=== PATIENT | female | born 1990 | race Caucasian/White ===

== ENCOUNTER 2016-11-17 10:16 | Inpatient (IN) | payer BC ==
[2016-11-17] MEDS ORDERED: fentaNYL 100 MCG/2 ML SDV ITHECAL ONE (10:34)
[2016-11-17] MEDS ORDERED: Ondansetron 4 MG/2 ML SDV IV PRN (12:09)
[2016-11-17] MEDS ORDERED: Lactated Ringers 500 ML IV ONE (12:09)
[2016-11-17] MEDS ORDERED: Sodium Chloride 0.9% 10 ML Syringe FLUSH PRN ×2 (12:09→22:59)
[2016-11-17] MEDS ORDERED: Misoprostol 400 MCG (4 X 100 MCG TAB) RECTAL PRN (12:09)
[2016-11-17] MEDS ORDERED: Carboprost Tromethamine 250 MCG/1 ML Amp IM PRN (12:09)
[2016-11-17] MEDS ORDERED: Acetaminophen 325 MG Tab PO PRN (12:09)
[2016-11-17] MEDS ORDERED: Lidocaine 1% 30 ML SDV INJECT PRN (12:09)
[2016-11-17] MEDS ORDERED: Methylergonovine 0.2 MG/1 ML Amp IM PRN (12:09)
[2016-11-17] MEDS ORDERED: Penicillin G Potassium 5 MILLUNITS in Sodium Chloride 0.9% 100 ML IV ONE (12:45)
[2016-11-17] MEDS: Lactated Ringers 1,000 ML IV SCH ×3 (13:16→21:13)
[2016-11-17] MEDS: Penicillin G Potassium 3 MILLUNITS in Sodium Chloride 0.9% 100 ML IV SCH ×2 (17:11→21:35)
[2016-11-17] MEDS ORDERED: Oxytocin/Normal Saline 30 UNIT/500 ML BAG IV SCH (19:00)
[2016-11-17] MEDS ORDERED: fentaNYL 100 MCG/2 ML SDV ONE (20:42)
--- NOTE | 2016-11-17 21:20 | PCM.PRNOTE ---
- Free Text/Narrative Note: Called to place intrathecal for pain management on this patient. After consent signed, and monitors on, proceeded. With patient in sitting position, sterile prep/drape. Skin wheal at L3-4 with 1% lidocaine. LP X 1 at L3-4 with 25 gauge pencan spinal needle via 20g introducer. Positive clear, free flowing CSF , no heme, no paresthesia. Then 20 mcg Sufenta + 30 mcg Fentanyl + 6 mg (0.8ML ) mpf hyperbaric spinal marcaine intrathecal. Pt to supine after placement. Pt reported no discomfort with subsequent contractions.
[2016-11-17] MEDS ORDERED: Zolpidem 5 MG Tab PO PRN (22:59)
[2016-11-17] MEDS ORDERED: Oxytocin 10 Units/1 ML SDV IM PRN (22:59)
[2016-11-17] MEDS ORDERED: Simethicone 80 MG Tab.Chew PO PRN (22:59)
[2016-11-17] MEDS ORDERED: Benzocaine/Menthol 20%-0.5% Spray 56 GM Canister TOP PRN (22:59)
[2016-11-17] MEDS ORDERED: diphenhydrAMINE 25 MG Tab PO ONE (23:12)
[2016-11-18] MEDS: Docusate Sodium 100 MG Cap PO PRN ×3 (00:04→22:08)
[2016-11-18] MEDS: Ibuprofen 800 MG Tab PO PRN ×3 (00:04→22:08)
[2016-11-18] MEDS: Lactated Ringers 1,000 ML IV SCH (00:06)
[2016-11-18] MEDS: Penicillin G Potassium 3 MILLUNITS in Sodium Chloride 0.9% 100 ML IV SCH (00:20)
[2016-11-18] MEDS: Ferrous Sulfate 325 MG Tab PO SCH (08:24)
[2016-11-18] MEDS: Prenatal Multivitamin with Calcium/Folic Acid/Iron Tab PO SCH (08:25)
--- NOTE | 2016-11-18 10:24 | HP ---
PATIENT IDENTIFICATION: Barb Perez is a 26-year-old, G3, P2-0-0-2, intrauterine , 40 and 1/7th weeks, confirmed with 23 and 4/7th week ultrasound, who presents with contractions, as well as history of rapid labor and deliveries, and lives far from the hospital. HISTORY OF PRESENT ILLNESS: The patient has been followed by Dr. Raygoza and Dr. Escobar throughout the , presented to the clinic today, was noted to have an elevated blood pressure by my nurse of 140s over 80s to 90s, recheck was 138/70s. Subsequently, she was sent over to the hospital for further evaluation and management. She denied any headaches, visual changes, or upper abdominal pain during this time period. She had a nonstress test done as well as preeclampsia labs done. Started having some contractions felt in the lower abdomen, questionable Justino Molina or not, but had cervical change from 3 cm in the clinic to 3.5 to 4 cm, changed from 60% to 70% effaced, -1 station, vertex suspected. Because of her history, GBS positive status, living far from the hospital, and having history of rapid labors and deliveries, shared decision was made to proceed with admission with antibiotic prophylaxis for her GBS positive status and consider artificial rupture of membranes thereafter. Patient understood and agreed with the above treatment plan. Records were called for and reviewed as below and supplemented by patient history. OBSTETRICAL HISTORY: 1. 10/16/2014; 41 weeks, delivered a female, spontaneous vaginal delivery. 2. On 12/03/2011; 41 and 1/7th weeks, delivered a female, spontaneous vaginal delivery, weighing 3572 g. ANTEPARTUM LABORATORY DATA: ABO blood type B negative. Negative antibody. Rubella immune. RPR nonreactive. Negative hepatitis B surface antigen. Negative hep C, HIV. GC and chlamydia were deferred. One-hour GTT was 66 on 08/18/2016, with hemoglobin being 11.4 and platelets being 200. Quad screen was felt to be not concerning. GBS was positive on 10/14/2016. ALLERGIES: None. MEDICATIONS: vitamins. PAST MEDICAL/PAST SURGICAL HISTORY: Remarkable history of chickenpox as a child. Blood type B negative. Otherwise, reviewed and felt to be noncontributory. FAMILY HISTORY: Daughter does not have any diseases. No colon cancer or breast cancer in the family. Negative family history of defects or diabetes. SOCIAL HISTORY: , Tereso, is a cast, stacker operator. They live in [place], [place]. Daughter, Joy, born on 12/03/2011. Fabi born on 10/16/2014. They were in February 2010. [employer]ec[employer]alism. Good support system within the family. 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 REVIEW OF SYSTEMS: Otherwise, reviewed and felt to be noncontributory. Please see nurse's intake form as well. OBJECTIVE: Vital Signs: Blood pressure in the clinic was 138/72, recheck was the same. Here at the hospital 132/78, heart rate 75, temperature 98.9. Appearance: Female, appears her stated age, acting appropriate for age, nontoxic in appearance. HEENT: Head is atraumatic. EOMs intact. PERRLA. No scleral icterus. No obvious otorhinorrhea. Mucous membranes are moist. Wears glasses. Neck: No obvious masses or lymphadenopathy. Lungs: Clear to auscultation bilaterally. No increased work of breathing. Heart: S1 and S2. Regular rate and rhythm. No obvious extra heart sounds, murmurs, rubs, or gallops Abdomen: Soft, nontender, and nondistended. Positive bowel sounds. No organomegaly, pulsatile masses, or hernias. No rebound, rigidity, or guarding. Gravid, Ranjit's indeterminate. Extremities: Trace to 1+ pitting edema to proximal tibia. Deep tendon reflexes 2/4 bilaterally and symmetric in the lower extremities. Psych: Mood and affect are congruent. Judgment and insight are intact. Skin: No cyanosis, clubbing, or jaundice. : Normal external female genitalia. Vaginal exam over the clinic was 3 cm, 60% effaced, -1 station. Re-evaluation after NST and evaluation at the hospital revealed her to be 3.5 to 4 cm, 70% effaced, -1 station. INVESTIGATIONS: White cell count 9.4, hemoglobin 10.3, platelets 218,000. BUN, creatinine, uric acid, AST, ALT, and LDH was felt to be within normal limits. NST was found to be reactive and reassuring. Tocometer does reveal contractions every 5 to 8 minutes apart. ASSESSMENT AND PLAN: 1. Intrauterine 40 and 07/05 weeks confirmed with 23 and 4/7th week ultrasound. 2. Contractions with cervical change-suspected labor. 3. History of rapid labors and delivery. 4. Lives far from the hospital. 5. Group B Streptococcus positive status. 6. Rh negative. 7. Anemia of with hemoglobin 10.3 upon admit. 8. Gestational versus transient hypertension. We will follow blood pressures closely. Workup for preeclampsia was felt to be not concerning. 9. G3, P2-0-0-2. PLAN: As described above with her GBS positive status, we will start antibiotics immediately, consider artificial rupture of membranes afterwards, as well as following clinically and closely especially with her history of fast labors, deliveries, and living far from the hospital. The patient understands and agrees with the above treatment plan. [facility] /[id number]
--- NOTE | 2016-11-18 10:50 | PN ---
DATE: 11/18/2016 day #1. SUBJECTIVE: The patient is tolerating POs, ambulating, urinating, passing flatus. OBJECTIVE: Vital Signs: Last set of vitals updated and listed in the chart. Heart rate 65, blood pressure 135/62, respiratory rate 16. Lungs: Clear to auscultation bilaterally. Heart: S1 and S2. Regular rate and rhythm. Abdomen: Firm uterus around the umbilicus. Extremities: Trace pedal edema. No calf pain. Cord blood type was worked up. Blood type is B negative, gel antibody screen was positive with antibody identification and RhoGAM indicated pending in terms of labs. ASSESSMENT: day #1, status post spontaneous vaginal delivery. PLAN: We will continue to follow clinically and closely. Possible discharge tomorrow. Plans were discussed with mother, she understands and agrees with the above treatment plan. [facility] /[id number]
--- NOTE | 2016-11-18 10:57 | PN ---
DATE: 11/17/2016 SUBJECTIVE: The patient has been feeling her contractions every 7 minutes. Penicillin has been given. OBJECTIVE: heart tones in the 130s range felt to be reassuring and reactive. Tocometer reveals contractions every 7 minutes. Vaginal exam reveals her to be 4 cm, 75% effaced, -1 station, vertex suspected, and artificial rupture of membranes done after discussion with the patient yielding copious amounts of clear fluid. ASSESSMENT AND PLAN: Intrauterine at 40 and 1/7th weeks with contractions with cervical change-labor, history of rapid labor and delivery, living far from the hospital, and GBS positive status mother. Given antibiotics appropriately. We will continue to follow clinically and closely at this point in time. The patient understands and agrees with the above treatment plan. [facility] /[id number]
--- NOTE | 2016-11-18 11:05 | PN ---
DATE: 11/17/2016 SUBJECTIVE: The patient has been feeling her contractions, she thinks every 5 to 8 minutes. OBJECTIVE: heart tones in the 140s range and felt to be reassuring. Tocometer reveals occasional contraction. Vaginal exam reveals her to be 4 to 4+ cm, 75% effaced, 0 station, vertex suspected. Clear fluid still noted. ASSESSMENT AND PLAN: Intrauterine 40 and 1/7th weeks complicated by gestational versus transient hypertension, contractions with cervical change, history of fast labors and deliveries, living far from the hospital, with GBS positive status. She is now status post her second dose of penicillin and has not changed significantly in terms of her cervical dilation and we will start Pitocin around 7:00 p.m. I did discuss with the patient, she understands and agrees with the above treatment plan. [facility] /[id number]
--- NOTE | 2016-11-18 11:08 | OBOUT ---
DATE: 11/17/2016 DATE AND TIME OF NST: DATE: 11/17/2016 TIME: 11:00 to 11:20 REASON FOR NST: 1. Intrauterine at 40-1/7 weeks, confirmed with 23-4/7 weeks' ultrasound. 2. Contractions with cervical change-labor. 3. History of rapid labor and delivery. 4. Lives far from the hospital. 5. Group B Streptococcus positive status. 6. Rh negative. 7. Anemia of with hemoglobin 10.3. 8. Gestational versus transient hypertension. 9. 3, para 2-0-0-2. NST INTERPRETATION: During this time period, heart tone baseline is approximately 140-145, and there are at least two 15 x 15-beat per minute accelerations, making this strip reactive. It is also noted to be reassuring. Tocometer reveals potential of 2 to 3 contractions, minimally felt by patient. ASSESSMENT/PLAN: 1. Non-stress test-reactive and reassuring. 2. Tocometer with contractions. PLAN: Please see admit history and physical for further details. [facility] /[id number]
--- NOTE | 2016-11-18 11:24 | DEL ---
DATE: 11/17/2016 PREOPERATIVE DIAGNOSES: 1. Intrauterine at 40-1/7 weeks, confirmed with 23-4/7 weeks' ultrasound. 2. Contractions with cervical change-labor upon admission. 3. History of rapid labors and delivery. 4. Lives far from the hospital. 5. Group B Streptococcus positive. 6. Rh negative. 7. Anemia of with hemoglobin 10.3 upon admission. 8. Gestational versus transient hypertension. 9. 3, para 2-0-0-2. POSTOPERATIVE DIAGNOSES: 1. Intrauterine at 40-1/7 weeks, confirmed with 23-4/7 weeks' ultrasound-delivered. 2. Contraction with cervical change-labor upon admission. 3. History of rapid labors and delivery. 4. Lives far from the hospital. 5. Group B Streptococcus positive. 6. Rh negative. 7. Anemia of with hemoglobin 10.3 upon admission. 8. Gestational versus transient hypertension. 9. 3, para 2-0-0-2. PROCEDURE PERFORMED: NST, artificial rupture of membranes, Pitocin augmentation, spontaneous vaginal delivery on 11/17/2016. ANESTHESIA/ANALGESIA: The patient did receive an intrathecal in the first stage of labor. ESTIMATED BLOOD LOSS: 200 mL. FINDINGS: Male, scores of 6 and 8, weight pending. SUMMARY OF EVENTS: The patient is a 26-year-old 3, para 2-0-0-2 intrauterine , 40-1/7 weeks, confirmed with 23-4/7 weeks' ultrasound, admitted with contractions and cervical change with history of rapid labor and delivery, living far from the hospital, GBS positive status. She received penicillin appropriately. Artificial rupture of membranes was done, had some protracted disorder of dilation and required Pitocin augmentation. Requested intrathecal, received this in the first stage of labor. She subsequently rapidly progressed and her cervical dilation was found to be complete and I was called to the room. I donned sterile gown and gloves, and with the patient pushing with the next contraction, vertex was delivered in SANDI presentation, followed by anterior and posterior shoulder, as well as the rest of the without difficulty. Mouth and nares were suctioned. was resuscitated on mother's abdomen. Cord was doubly clamped and cut. Then, approximately 10 mL of cord blood was obtained for labs. Placenta then delivered with gentle cord traction with fundal massage within 5 minutes. Perineum, vagina, and perirectal areas were then examined without any tears or lacerations. Mother and are currently stable at the time of dictation. Of note, during resuscitation on mother's abdomen/chest, baby was cyanotic and placed over to the warmer where further resuscitation ensued. Please see baby's note in regard to this. [facility] /[id number]
[2016-11-18 14:13] VITALS: BP 112/65
--- NOTE | 2016-11-18 14:25 | PCM.POSTAN ---
POST ANESTHESIA ASSESSMENT - MENTAL STATUS Mental Status: alert - VITAL SIGNS Pulse Rate: 60 SaO2: 97 Resp Rate: 16 Blood Pressure: 112/65 Temperature: 98 C - RESPIRATORY Respiratory Status: respiratory rate WNL - CARDIOVASCULAR CV Status: pulse rate WNL - GASTROINTESTINAL GI Status: no symptoms - PAIN Pain Score: 0 - POST OP HYDRATION Hydration Status: adequate & stable (pt states no c/o. No PDPH, no c/o nausea, no c/o pain. No post anesthesia complications noted.)
[2016-11-19] MEDS: Ibuprofen 800 MG Tab PO PRN (09:16)
[2016-11-19] MEDS: Prenatal Multivitamin with Calcium/Folic Acid/Iron Tab PO SCH (09:16)
[2016-11-19] MEDS: Ferrous Sulfate 325 MG Tab PO SCH (09:16)
[2016-11-19] MEDS: Docusate Sodium 100 MG Cap PO PRN (09:21)
--- NOTE | 2016-11-19 10:42 | DISCH ---
ADMIT DIAGNOSES: 1. Intrauterine at 40-1/7 weeks, confirmed with 23-4/7 weeks' ultrasound. 2. Contractions with cervical change-labor. 3. History of rapid labor and delivery. 4. Lives far from the hospital. 5. Group B Streptococcus positive. 6. Rh negative. 7. Anemia of with hemoglobin of 10.3. 8. Gestational versus transient hypertension. 9. 3, para 2-0-0-2. DISCHARGE DIAGNOSES: 1. Intrauterine at 40-1/7 weeks, confirmed with 23-4/7 weeks' ultrasound-delivered. 2. Contraction with cervical change-labor. 3. History of rapid labor and delivery. 4. Lives far from the hospital. 5. Group B Streptococcus positive. 6. Rh negative. 7. Anemia of . Hemoglobin of 10.3. 8. Gestational versus transient hypertension. 9. 3, para 2-0-0-2. PROCEDURE PERFORMED: NST, artificial rupture of membranes, Pitocin augmentation, spontaneous vaginal delivery on 11/17/2016, per Dr. Mendosa. HISTORY OF PRESENT ILLNESS: Please see H and P. SUMMARY OF HOSPITAL COURSE: The patient was admitted on the above date with the above diagnoses. Underwent the above procedures. She has a history of fast labors and deliveries. GBS positive status. She was admitted with contractions and cervical change. She underwent the above procedures, then went on to have a spontaneous vaginal delivery that was very fast and rapid, yielding a male with scores of 6 and 8, weighing 7 pounds 14 ounces (3570 g). Please see delivery note for further details. day #1, please see progress note. day #2, date of discharge, the patient was tolerating p.o., ambulating, urinating, passing flatus, requesting discharge. PHYSICAL EXAMINATION: Vital Signs: Last set of vitals updated and listed in the chart. The patient suspected to be afebrile. Heart rate 60, blood pressure 112/65, respiratory rate 16. Lungs: Clear to auscultation bilaterally. Heart: S1 and S2. Regular rate and rhythm. Abdomen: Firm uterus around the umbilicus. Extremities: Trace pedal edema. No calf pain. LABORATORY DATA: Discharge labs reveal a white cell count 9.3, hemoglobin 10.7, platelets 235,000. CONDITION ON DISCHARGE COMPARED TO CONDITION ON ADMISSION: Improved. DISCHARGE INSTRUCTIONS: 1. Diet as tolerated. 2. Activity, no lifting more than 10 to 20 pounds. 3. No sit-ups, straining, and pelvic rest for next 6 weeks with immediate return to fertility discussed with the patient. 4. Reasons to return or go to the emergency room were discussed with the patient in detail including, but not limited to, temperature of greater than 100.4, foul-smelling discharge, red, hot tender breasts, or increased vaginal bleeding. DISCHARGE MEDICATIONS: 1. [id number] ibuprofen for pain. 2. Iron sulfate 325 b.i.d. x6 weeks along and vitamins while breast feeding. FOLLOWUP: Follow up [address] Escobar or myself. The patient understands and agrees with the above treatment plan. I did discuss the importance of followup of her infant. Reasons to return or go to the emergency room in regard to her infant as well. She understands and agrees. [facility] /[id number]
== END 2016-11-19 13:00 | disposition home or self-care (01) | DRG 560 ==
LOC: DL.OBCHECK 10:16 → DL.OB 12:07 → UNDOADMOB 12:07 → INTOOBSV 22:22 → OBSVTOIN 22:22 → DL.OB 22:32 → DL.MS 11-18 19:32
PROVIDERS: ADMIT Family Medicine; ATTEND Family Medicine
PROC: 10E0XZZ Delivery of Products of Conception, External Approach (ICD-10-PCS; principal; 2016-11-17)
PROC: 4A1HXFZ Monitoring of Products of Conception, Cardiac Rhythm, External Approach (ICD-10-PCS; 2016-11-17)
PROC: 10907ZC Drainage of Amniotic Fluid, Therapeutic from Products of Conception, Via Natural or Artificial Opening (ICD-10-PCS; 2016-11-17)
PROC: 00HU33Z Insertion of Infusion Device into Spinal Canal, Percutaneous Approach (ICD-10-PCS; 2016-11-17)
DX: O99.824 Streptococcus B carrier state complicating childbirth (principal); O13.4 Gestational [pregnancy-induced] hypertension without significant proteinuria, complicating childbirth; O99.02 Anemia complicating childbirth; Z3A.40 40 weeks gestation of pregnancy; Z75.3 Unavailability and inaccessibility of health-care facilities; Z37.0 Single live birth
CPT/HCPCS: 36415; 59025; 82565; 83615; 84450; 84460; 84520; 84550; 85025; 85027; 85461; 86850; 86870; 86900; 86901; A9270-GY; J2405; J2540; J2590; J2790; J3010; J7050; J7120